=== PATIENT | female | born 1960 | race Caucasian/White ===

== ENCOUNTER → 2021-05-19 | Outpatient (CLI) | payer OTHER ==
[~2021-05-19] MED LIST: ISOVUE-370 76% 100ML VIAL As Ordered ONE
--- NOTE | 2021-05-19 09:57 | REP ---
INDICATION: SOB,EDEMA,CARDIOMEGALLY COMPARISON: None. TECHNIQUE: CT angiography of the chest after the intravenous administration of 75 cc Isovue 370 attention pulmonary arteries. FINDINGS: There is excellent visualization of the pulmonary arterial vasculature. No focal filling defects are present that would be considered consistent with acute pulmonary emboli. Although seen in a limited fashion the thoracic aorta shows no gross abnormalities. There are no pleural or pericardial effusions. There is no evidence of mediastinal or hilar adenopathy. The imaged upper abdomen shows nonobstructing calculi in the right kidney with evidence of asymmetric renal cortical thinning likely due to chronic changes. The kidneys are incompletely imaged. The osseous structures are within normal limits. Evaluation of the lung wong shows lung field hypoexpansion and scattered patchy ground-glass opacities likely due to hypoventilation. In the right middle lobe there is 5 mm size nodule. There is an incidental calcified granuloma in the left lower lobe. IMPRESSION: 1. There is no evidence of a pulmonary embolism. 2. 5 mm size nodule in the right middle lobe. There are no priors comparison. According to the revised Fleischner society criteria this represents a lung rads category 2 lesion for which a 1 year follow-up chest CT is recommended. 3. Likely patchy subsegmental atelectatic changes due to hypoventilation. 4. Other findings as described above. <Electronically signed by Reji Greene > 05/19/21 4505
== END ==
LOC: M RAD 09:04
PROVIDERS: ATTEND Internal Medicine Cardiovascular Disease
DX: R06.02 Shortness of breath (principal); I51.7 Cardiomegaly
CPT/HCPCS: 71275; Q9967